=== PATIENT | female | born 1935 | race Caucasian/White ===

== ENCOUNTER 2016-12-18 10:25 | Emergency (ER) | payer OTHER ==
[~2016-12-18] VITALS: Ht 165.1 cm; Wt 63.0 kg
[2016-12-18 12:39] LABS: HEMATOCRIT 42.4 % (36.0-46.0); MCH 28.9 PG (29.0-34.0); MCHC 33.3 G/DL (30.0-36.0); MCV 86.9 FL (83-99); MEAN PLAT.VOLUME 8.8 uM^3 (9.5-12.4); PLATELET COUNT 250 K/uL (156-360); RBC DIS.WIDTH-CV 14.6 % (11.8-14.6); RBC DIS.WIDTH-SD 45.7 % (39-53); RED BLOOD COUNT 4.88 M/uL (3.80-5.20); WHITE BLOOD COUNT 6.3 K/uL (4.1-10.2)
[2016-12-18 12:49] LABS: CHLORIDE 105 mEq/L (99-109); POTASSIUM 4.1 mEq/L (3.7-5.4); SODIUM 141 mEq/L (136-147)
[2016-12-18 12:51] LABS: GLUCOSE 103 mg/dL (70-99)
[2016-12-18 12:53] LABS: ANION GAP 12 MEQ/L (2-14); TOTAL BILIRUBIN 0.5 mg/dL (0.0-1.0)
[2016-12-18 12:55] LABS: ALKALINE PHOSPHATASE 58 IU/L (3-129); GFR ESTIMATE (CALCULATED) > 59 mL/min/
[2016-12-18 12:56] LABS: UREA NITROGEN (BUN) 13 mg/dL (9-23)
[2016-12-18 13:01] LABS: ADD MIUA? YES; BILIRUBIN NEGATIVE; BLOOD NEGATIVE; COLOR YELLOW ((YELLOW)); GLUCOSE (STRIP) NEGATIVE; KETONES NEGATIVE; LEUKOCYTES TRACE; NITRITE NEGATIVE; PROTEIN (STRIP) NEGATIVE; SPECIFIC GRAVITY 1.008 (1.000-1.030); UROBILINOGEN 0.2 MG/DL (0.2-1.0)
[2016-12-18 13:23] LABS: BACTERIA 2+ /HPF; EPITHELIAL CELLS 1+ /HPF; MUCUS TRACE /LPF; RED BLOOD CELLS 0-5 /HPF (0-5); UCUL ADDED? YES
[2016-12-18] MEDS ORDERED: KEFLEX500 MG PO (13:39)
[2016-12-18 13:56] VITALS: BP 152/56
== END 2016-12-18 13:57 | disposition home or self-care (01) ==
LOC: EME 10:25
PROVIDERS: Nurse Practitioner Family
DX: N30.90 Cystitis, unspecified without hematuria (principal); J43.9 Emphysema, unspecified; R53.1 Weakness; R63.0 Anorexia; Z87.891 Personal history of nicotine dependence; Z91.040 Latex allergy status; Z88.8 Allergy status to other drugs, medicaments and biological substances; Z88.2 Allergy status to sulfonamides; E78.5 Hyperlipidemia, unspecified
CPT/HCPCS: 71020; 80053; 81003; 85027; 87086; 99281; 99284

== ENCOUNTER 2017-10-24 13:03 | Emergency (ER) | payer OTHER ==
[~2017-10-24] VITALS: Ht 162.6 cm; Wt 66.4 kg
[~2017-10-24 13:03] MED LIST: KEFLEX500 MG PO
[2017-10-24 16:08] VITALS: BP 146/67
[2017-10-24] MEDS ORDERED: MEDROL DOSEPAK4 MG PO (16:12)
== END 2017-10-24 16:31 | disposition home or self-care (01) ==
LOC: EME 13:03
DX: M54.16 Radiculopathy, lumbar region (principal); M53.3 Sacrococcygeal disorders, not elsewhere classified; M85.88 Other specified disorders of bone density and structure, other site; E78.5 Hyperlipidemia, unspecified; Z87.891 Personal history of nicotine dependence; Z88.2 Allergy status to sulfonamides; Z91.040 Latex allergy status
CPT/HCPCS: 72131; 73502; 99281; 99283